=== PATIENT | male | born 1960 | race Caucasian/White ===

== ENCOUNTER 2020-10-28 06:29 | Inpatient (IN) | payer OTHER ==
[~2020-10-28] VITALS: Ht 157.5 cm; Wt 60.4 kg
--- NOTE | ~2020-10-28 | CON ---
[address] [address] CONSULTATION Name: ALYSHA LAND Room: [address] IN .R.#: [id number] Admission: 10/28/20 Attend Phys: Kin Browning MD Discharge: Date of : 62 Report #: [id number] THIS REPORT FOR: cc: FAM - Family physician unknown FAM - Family physician unknown ~ Miguel Alexander MD CONSULTING PHYSICIAN: Miguel Alexander MD The patient has no regular primary care physician. The patient is being seen today for right upper quadrant pain and elevated liver function tests. The patient personally seen and examined by me. HISTORY OF PRESENT ILLNESS: This is a 60-year-old male who denies any past medical history who presented to our Emergency Department with complaints of worsening abdominal pain, diarrhea, and abdominal distention over the last 5 to 7 days without vomiting. The patient reported that his pain was as high as 10/10. He denies any associated constipation. He does have a history of heavy drinking and reports that he has for years had about 5 heavily mixed liquor drinks daily and within the last 2 months has reduced it down to 2 drinks daily. He denies any alcohol use over the last 4 days. He reports that he has normal bowels are soft formed and brown that occur daily. PAST MEDICAL HISTORY: Kidney stones removed in 2001. He has never had an EGD or colonoscopy before. FAMILY HISTORY: No significant family history. SOCIAL HISTORY: Current 1 pack a day smoker. History of heavy drinking 5 drinks daily for years and recently within the last 2 months, decreased those drinks to 2 daily. He has not had anything to drink in 4-5 days. He denies illicit drug use. MEDICATIONS: He takes no current medications. PHYSICAL EXAMINATION LUNGS: Clear bilaterally to auscultation with regular rate and work of breath. 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 ABDOMEN: Soft, but distended, tenderness upon palpation of the right upper quadrant. Positive bowel sounds. SKIN: Difficult to assess for jaundice. EXTREMITIES: Mild scleral icterus bilaterally. IMAGING: Ultrasound of the abdomen revealed ascites, hepatomegaly, hepatic steatosis, mildly distended gallbladder with mural [place] [address] CONSULTATION Name: ALYSHA LAND Room: [address]#: [id number] Admission: 10/28/20 Attend Phys: Kin Browning MD Discharge: Date of : 62 Report #: [id number] dilatation. LABORATORY DATA: Bilirubin 3.4, AST 160, ALT 35, alkaline phosphatase 337. White blood cell count 8.3, hemoglobin 12.4, platelet 135, albumin 2.3, BUN 6, creatinine 0.6, GFR 138. INR is 1.2, GGTP 1545. Hepatic panel pending. ASSESSMENT: 1. Right upper quadrant abdominal pain. 2. Acute hepatitis. 3. Hyperbilirubinemia. 4. History of heavy ETOH use. PLAN: 1. EGD today. 2. Paracentesis today. 3. MRCP today. 4. Await results of acute hepatitis panel. 5. Trend labs for liver function tests. Thank you for allowing us to participate in the consultation on this delightful 60-year-old male. We will await results of the paracentesis, EGD, MRCP, acute hepatitis panel and make further recommendations based upon those results. Please feel free to contact us for any other needs or questions about this consultation. By: [id number] Alexander MD /nt
[2020-10-28 06:42] VITALS: BP 148/92
[2020-10-28 07:00] LABS: ICTOTEST (BILI CONFIRMATORY) Positive (Negative); URINE BILIRUBIN 2+ (Negative); URINE BLOOD NEGATIVE (Negative); URINE CLARITY CLEAR; URINE COLOR YELLOW; URINE GLUCOSE-RANDOM TRACE (Negative); URINE KETONES NEGATIVE (Negative); URINE LEUKOCYTES-REFLEX NEGATIVE (Negative); URINE NITRITE-REFLEX NEGATIVE (Negative); URINE PROTEIN TRACE (Negative); URINE UROBILINOGEN >= 8.0 E.U./dl (0.2-1.0)
[2020-10-28 07:18] LABS: ABSOLUTE BASOPHILS 0.1 thou/uL (0.0-0.2); ABSOLUTE EOSINOPHILS 0.1 thou/uL (0.0-0.7); ABSOLUTE LYMPHOCYTES 1.7 thou/uL (0.8-5.3); ABSOLUTE MONOCYTES 1.3 thou/uL (0.0-1.2); ABSOLUTE NEUTROPHILS 7.7 thou/uL (1.6-8.1); BASOPHILS 0.7 %; EOSINOPHILS 1.1 %; HEMATOCRIT 40.6 % (42.0-52.0); HEMOGLOBIN 13.8 gm/dL (14.0-18.0); LYMPHOCYTES 15.4 %; MCH 38.1 pg (26.0-34.0); MCV 112.1 fL (80.0-100.0); MPV 8.7 fl. (7.2-11.1); NUCLEATED RBCS 0 /100WBC; PLATELET COUNT* 165 thou/uL (150-400); POLYS 70.8 %; RBC 3.62 mil/uL (4.50-6.00); RDW-CV 13.1 % (10.5-14.5); WBC 10.8 thou/uL (4.0-11.0)
[2020-10-28 07:24] LABS: CALCIUM 8.4 mg/dL (8.5-10.1); CREATININE 0.7 mg/dL (0.6-1.3); POTASSIUM 3.1 mmol/L (3.5-5.1)
[2020-10-28 07:25] LABS: INR 1.2
[2020-10-28 07:28] LABS: ALBUMIN 2.9 g/dL (3.4-5.0); MAGNESIUM 1.4 mg/dL (1.8-2.4); TOTAL BILIRUBIN 4.5 mg/dL (<0.1-1.0); TOTAL PROTEIN 7.1 g/dL (6.4-8.2)
[2020-10-28 10:28] VITALS: BP 127/80
[2020-10-28 12:00] VITALS: BP 137/84
[2020-10-28 16:00] VITALS: BP 122/80
[2020-10-28 20:00] VITALS: BP 115/82
[2020-10-29] VITALS: BP 135/78
[2020-10-29 04:22] LABS: HEMATOCRIT 36.8 % (42.0-52.0); HEMOGLOBIN 12.4 gm/dL (14.0-18.0); MCH 38.8 pg (26.0-34.0); MCHC 33.8 g/dL (28.0-37.0); MCV 114.5 fL (80.0-100.0); RBC 3.21 mil/uL (4.50-6.00); RDW-CV 13.1 % (10.5-14.5); WBC 8.3 thou/uL (4.0-11.0)
[2020-10-29 04:30] VITALS: BP 111/75
[2020-10-29 04:46] LABS: ALBUMIN 2.3 g/dL (3.4-5.0); CALCIUM 7.5 mg/dL (8.5-10.1); CREATININE 0.6 mg/dL (0.6-1.3); MAGNESIUM 1.4 mg/dL (1.8-2.4); TOTAL BILIRUBIN 3.4 mg/dL (<0.1-1.0); TOTAL PROTEIN 5.8 g/dL (6.4-8.2)
[2020-10-29 04:50] LABS: POTASSIUM 4.6 mmol/L (3.5-5.1)
[2020-10-29 11:20] LABS: BF RBC <1000 /mm3; TOTAL CELL COUNT 225 /mm3
[2020-10-29 11:22] LABS: CLARITY SLIGHTLY HAZY; TOTAL VOLUME 1700 ml
[2020-10-29 11:48] LABS: BF LYMPHOCYTES 94 %; BF MONOCYTES 0 %; BF POLYS 6 %; BF TISSUE 94 /100 WBC
[2020-10-29 11:49] LABS: SOURCE ASCITES
[2020-10-29 14:31] VITALS: BP 124/69
[2020-10-29 16:00] VITALS: BP 132/85
[2020-10-29 20:00] VITALS: BP 131/79
[2020-10-30 02:06] LABS: HEPATITIS B SURFACE AG Negative (Negative)
[2020-10-30 04:06] LABS: MCH 38.8 pg (26.0-34.0); MCHC 34.1 g/dL (28.0-37.0); MCV 113.7 fL (80.0-100.0); MPV 9.3 fl. (7.2-11.1); RBC 3.34 mil/uL (4.50-6.00); WBC 9.3 thou/uL (4.0-11.0)
[2020-10-30 04:14] LABS: ALBUMIN 2.6 g/dL (3.4-5.0); CALCIUM 7.7 mg/dL (8.5-10.1); CREATININE 0.6 mg/dL (0.6-1.3); MAGNESIUM 1.7 mg/dL (1.8-2.4)
[2020-10-30 04:28] VITALS: BP 128/82
[2020-10-30 08:30] VITALS: BP 108/77
[2020-10-30 12:06] LABS: BODY FLUID PROTEIN 2.4 g/dL (())
[2020-10-30 12:53] VITALS: BP 105/58
[2020-10-30 20:00] VITALS: BP 112/73
[2020-10-31 03:09] VITALS: BP 109/60
[2020-10-31 04:48] LABS: INR 1.3; PROTIME 14.1 Seconds (9.20-11.50)
[2020-10-31 05:32] LABS: ALBUMIN 2.4 g/dL (3.4-5.0); CALCIUM 7.2 mg/dL (8.5-10.1); CREATININE 0.6 mg/dL (0.6-1.3); MAGNESIUM 1.7 mg/dL (1.8-2.4); POTASSIUM 3.5 mmol/L (3.5-5.1); TOTAL BILIRUBIN 2.3 mg/dL (<0.1-1.0); TOTAL PROTEIN 5.7 g/dL (6.4-8.2)
[2020-10-31 08:45] VITALS: BP 113/69
[2020-10-31 15:50] VITALS: BP 103/63
[2020-10-31 20:00] VITALS: BP 121/79
[2020-11-01 04:59] VITALS: BP 101/60
[2020-11-01 08:08] LABS: ABSOLUTE BASOPHILS 0.1 thou/uL (0.0-0.2); ABSOLUTE EOSINOPHILS 0.2 thou/uL (0.0-0.7); ABSOLUTE LYMPHOCYTES 1.5 thou/uL (0.8-5.3); ABSOLUTE MONOCYTES 1.3 thou/uL (0.0-1.2); ABSOLUTE NEUTROPHILS 5.6 thou/uL (1.6-8.1); BASOPHILS 1.2 %; EOSINOPHILS 2.4 %; HEMATOCRIT 39.4 % (42.0-52.0); HEMOGLOBIN 13.4 gm/dL (14.0-18.0); LYMPHOCYTES 16.8 %; MCH 38.4 pg (26.0-34.0); MCHC 34.1 g/dL (28.0-37.0); MCV 112.6 fL (80.0-100.0); MONOCYTES 15.5 %; MPV 8.9 fl. (7.2-11.1); NUCLEATED RBCS 0 /100WBC; PLATELET COUNT* 165 thou/uL (150-400); POLYS 64.1 %; RBC 3.49 mil/uL (4.50-6.00); RDW-CV 13.3 % (10.5-14.5); WBC 8.7 thou/uL (4.0-11.0)
[2020-11-01 08:20] VITALS: BP 115/68
[2020-11-01 08:20] LABS: ALBUMIN 2.7 g/dL (3.4-5.0); CALCIUM 8.2 mg/dL (8.5-10.1); CREATININE 0.7 mg/dL (0.6-1.3); POTASSIUM 3.8 mmol/L (3.5-5.1); TOTAL BILIRUBIN 2.9 mg/dL (<0.1-1.0); TOTAL PROTEIN 6.4 g/dL (6.4-8.2)
[2020-11-01 08:44] LABS: MACROCYTES 1+; PLATELET ESTIMATE ADEQUATE
[2020-11-01 08:56] LABS: ANA INTERPRETATION Negative (Negative)
[2020-11-01 09:13] LABS: ESR (SEDRATE) 19 mm/hr (0-20)
[2020-11-01 19:45] VITALS: BP 115/74
[2020-11-02 07:43] VITALS: BP 101/72
[2020-11-02] MEDS ORDERED: OMEPRAZOLE40 MG PO (08:35)
[2020-11-02] MEDS ORDERED: LASIX 20 MG TAB20 MG PO (08:35)
[2020-11-02] MEDS ORDERED: SPIRONOLACTONE50 MG PO (08:35)
[2020-11-02 10:40] VITALS: BP 101/72
[2020-11-02 11:58] VITALS: BP 101/72
--- NOTE | 2020-11-03 09:07 | PATH ---
[address] [address] PATHOLOGY RPT PROCEDURE Name: ALYSHA LAND Room: [address] IN [facility]#: [id number] Admission: 10/28/20 Date of : 62 Discharge: 11/02/20 Report #: [id number] Path Case #: [id number] Note [facility] Accession Number: [id number] TESTS RESULT FLAG UNITS REF RANGE LAB Clinician Provided Cytology Information No. of containers..01 Other (Miscellaneous) Source: ASCITES DIAGNOSIS: 01 ASCITES NEGATIVE FOR MALIGNANT CELLS. REACTIVE MESOTHELIAL CELLS ARE PRESENT. THIS INTERPRETATION INCLUDES EVALUATION OF A CELL BLOCK. COMMENT, SUGGEST CLINICAL CORRELATION Signed out by: 01 Ted Terry MD, Pathologist NPI- [id number] Performed by: 01 Tanya Figueredo, Wind Turbine Performance Engineer ([facility]) Gross description: 01 14ML, CLEAR YELLOW, 1 TP 1 CB /LCS 11/01/2020 1129 Local FLAG LEGEND: L-Low Normal,H-High Normal,LL-Alert Low,HH-Alert High <-Panic Low,>-Panic High,A-Abnormal,AA-Critical Abnormal Performed at: [address] [place] [address] Ted Terry MD, Specimen Comment: A courtesy copy of this report has been sent to [phone] Specimen Comment: [phone] Specimen Comment: Report sent to Performed at: [address], [place], [place] [id number] MD Ted Terry MD Phone: [phone]
[2020-11-03 18:07] LABS: CMV IgM Abs <30.0 AU/mL (0.0-29.9); EBNA-1 IgG >600.0 U/mL (0.0-17.9); EBV VCA IgM <36.0 U/mL (0.0-35.9)
== END 2020-11-02 11:40 | disposition home or self-care (01) | DRG 432 ==
LOC: M.ERS 06:29 → M.TBA-ER 09:10 → M.2W 09:10 → M.3W 11-01 17:58
PROVIDERS: Emergency Medicine; Internal Medicine; Internal Medicine Gastroenterology; ADMIT Internal Medicine; ATTEND Internal Medicine
PROC: 0W9G3ZZ Drainage of Peritoneal Cavity, Percutaneous Approach (ICD-10-PCS; principal; 2020-10-29)
PROC: 0DJ08ZZ Inspection of Upper Intestinal Tract, Via Natural or Artificial Opening Endoscopic (ICD-10-PCS; principal; 2020-10-29)
DX: K70.10 Alcoholic hepatitis without ascites (principal); K83.1 Obstruction of bile duct; E44.0 Moderate protein-calorie malnutrition; K76.6 Portal hypertension; E87.6 Hypokalemia; E80.6 Other disorders of bilirubin metabolism; F17.210 Nicotine dependence, cigarettes, uncomplicated; E86.9 Volume depletion, unspecified; E83.42 Hypomagnesemia; E78.5 Hyperlipidemia, unspecified; K31.89 Other diseases of stomach and duodenum; K74.69 Other cirrhosis of liver; Z20.828 Contact with and (suspected) exposure to other viral communicable diseases; Z87.442 Personal history of urinary calculi; Z68.24 Body mass index [BMI] 24.0-24.9, adult; Z79.899 Other long term (current) drug therapy